=== PATIENT | male | born 1930 | race Caucasian/White ===

== ENCOUNTER → 2016-09-08 | Outpatient (CLI) | payer MEDICARE, OTHER ==
[~2016-09-08] MED LIST: ASCORBIC ACID500 MG PO; ASPIRIN LO-DOSE81 MG PO; FISH OIL1000 MG PO; FLOMAX0.4 MG PO; HYTRIN UD5 MG PO; LIPITOR40 MG PO; LOPRESSOR25 MG PO; NORCO 5-325 TA1 EACH PO; PEPCID20 MG PO; PHILLIPS MOM311 MG PO; PRAVACHOL20 MG PO; PRINIVIL (ZESTRI5 MG PO; PROTONIX40 MG PO; THERAGRAN-M1 TAB PO; TYLENOL WITH C1 EACH PO; VIACTIV SOFT C1 EACH PO
== END | disposition disaster alternative care site (69) ==
LOC: GRAD 08:54
DX: N63 Unspecified lump in breast (principal)

== ENCOUNTER → 2016-09-29 | Outpatient (CLI) | payer MEDICARE, OTHER | END | disposition disaster alternative care site (69) | LOC: GBCOE 12:52 | DX: N63 Unspecified lump in breast (principal) | CPT/HCPCS: G0206; G0279 ==

== ENCOUNTER 2017-01-17 02:21 | Emergency (ER) | payer MEDICARE, OTHER ==
--- NOTE | ~2017-01-17 | ER ---
PATIENT'S NAME: VERENA AGUIRRE [facility] AGE: 86 Y [address] ROOM: [place] [address] LOCATION: ED ADMIT DATE: 01/17/2017 ER/Outpatient Report DISCHARGE DATE: FAMILY PHYSICIAN: Raza Chan MD ATTENDING PHYSICIAN: Raza Davis Admission date and time documented in medical record. I saw the patient at 0235 hours. CHIEF COMPLAINT: Bloating, epigastric pain, and diaphoresis. HISTORY OF PRESENT ILLNESS: The patient is an 86-year-old male, who around 0100 hours got up to go to the restroom and noticed that he was diaphoretic. He felt his upper abdomen was bloating and he had some epigastric abdominal discomfort. He has been having some problems with this for quite some time. He is scheduled to get an ultrasound of his gallbladder this coming Thursday. No chest pain, just epigastric discomfort. No shortness of breath. Little bit of nausea, but no vomiting, diarrhea, urinary frequency, urgency, or dysuria. No fever or chills. No recent coughs, colds, or flus. No lightheadedness, dizziness, syncope, or near syncope. No fall or trauma. No headache or eyes, ears, nose, throat, neck, or spine pain. No joint or muscle swelling, redness, or pain. No skin eruptions or rash. No history of neuro changes, psych issues, endocrine problems. Does have a history of chronic kidney disease, reflux, coronary artery disease, carotid occlusive disease, and dyslipidemia. HOME MEDICATIONS: See attached medication list. ALLERGIES: CALCIUM CHANNEL BLOCKERS. SOCIAL HISTORY: Nonsmoker, nondrinker. SIGNIFICANT PAST MEDICAL HISTORY: Atherosclerotic ischemic heart disease with coronary artery disease, dyslipidemia, benign prostatic hypertrophy, hypertension, gastroesophageal reflux, colon cancer, chronic kidney disease stage 3, ventral hernia, carotid occlusive disease, hard of hearing. OPERATIONS: Cardiac catheterization with PTCA and stenting, cataract extraction, prostate biopsies, carotid artery surgery. PATIENT'S NAME: VERENA AGUIRRE [facility] AGE: 86 Y [address] ROOM: [place] [address] LOCATION: ED ADMIT DATE: 01/17/2017 ER/Outpatient Report DISCHARGE DATE: FAMILY PHYSICIAN: Raza Chan MD ATTENDING PHYSICIAN: Raza Davis REVIEW OF SYSTEMS: All systems reviewed by me are negative with the exception of those discussed in the history of present illness. PHYSICAL EXAMINATION: VITAL SIGNS: Pulse 84 and regular, respirations 16, blood pressure 191/79, O2 sat on room air is 94%. Lanny Coma Scale was 15. HEAD: Normocephalic. EYES: Extraocular muscles intact. PERRL. EARS: Clear TMs bilaterally. NOSE AND THROAT: Clear. Mucous membranes moist. NECK: No nuchal rigidity. No thyromegaly, or cervical adenopathy. No tenderness. SPINE: Nontender. No deformity. LUNGS: Clear. Good air flow. No rales, rhonchi, or wheezes. HEART: Regular. Pulses are palpable. No chest wall or ribcage pain to palpation. ABDOMEN: Soft. Some mild epigastric right upper quadrant abdominal discomfort to palpation. No true guarding or rigidity. No rebound tenderness. Active bowel tones. No organomegaly or abnormal masses palpable. No CVA tenderness. EXTREMITIES: Without peripheral edema, cyanosis, or deformity. NEURO: Neurovascularly intact. SKIN: Clear. No skin eruptions or rash. IMAGING DATA: Chest x-ray showed no perforation, obstruction, or acute lung infiltrate. We will review x-ray with the radiologist. EKG showed sinus rhythm with a right bundle-branch block, first-degree AV block. No acute ST elevation, ischemic change, or arrhythmia. LABORATORY DATA: Urinalysis was clear. White count was 7000, 70 segs, 16 lymphs, 9 monos, 4 eos, 1 baso. Hemoglobin is 11.4, hematocrit 34.4, platelet count is 200,000. Protime is 10.8 with an INR of 1.03. CMS was normal except for an elevated glucose of 103, elevated BUN of 34, elevated creatinine 1.8 with a low GFR of 36. Amylase was 130, lipase was 343, CPK was 214, CK-MB was 3.8. Troponin was less than 0.04. TSH was elevated at 6.0. Did get a CT scan of the abdomen and pelvis without contrast. Did show cholelithiasis without cholecystitis. He had some sigmoid diverticulosis without diverticulitis. Appendix was normal. He had some mild renal atrophy with chronic degenerative changes of the spine. CT scan was read by Radiology, see dictated transcribed report. EMERGENCY DEPARTMENT COURSE: PATIENT'S NAME: VERENA AGUIRRE [facility] AGE: 86 Y [address] ROOM: [place], [place] [address] LOCATION: [facility] ADMIT DATE: 01/17/2017 ER/Outpatient Report DISCHARGE DATE: FAMILY PHYSICIAN: Raza Chan MD ATTENDING PHYSICIAN: Raza Davis I did give the patient an oral GI cocktail with some improvement. IMPRESSION: 1. Epigastric right upper quadrant abdominal pain with bloating, etiology uncertain, but most likely secondary to cholelithiasis. 2. Sigmoid diverticulosis without diverticulitis. 3. Chronic kidney disease stage 3. 4. Atherosclerotic ischemic heart disease with coronary artery disease. 5. Carotid occlusive disease. 6. Dyslipidemia. 7. Hypertension. 8. Gastroesophageal reflux. 9. Carotid occlusive disease. PLAN: The patient dismissed home. Observation. Activity as tolerated. Continue present home medications and care. Avoid diet and fluids as tolerated. Avoid spicy, greasy, fatty, fried foods. The patient was encouraged to follow up and do his ultrasound of the gallbladder that scheduled on this coming Thursday. Follow up with personal physician as needed or as scheduled. Discussion ensued with the patient his concerning my findings and recommendations, they understand. MD ANDI BURNS/modl /[id number] d: 01/17/17 06 t: 01/17/17 1809, OUTPATIENT REPORT
[~2017-01-17 02:21] MED LIST changes: -NORCO 5-325 TA1 EACH PO; -TYLENOL WITH C1 EACH PO
[2017-01-17 03:04] LABS: BASOPHIL # 0.1 K/uL (0.0-0.2); BASOPHIL % 0.7 %; EOSINOPHIL # 0.3 K/uL (0.0-0.5); EOSINOPHIL % 3.7 %; HEMATOCRIT 34.4 % (33.0-50.0); HEMOGLOBIN 11.4 g/dL (11.0-16.0); IMMATURE GRANULOCYTE # 0.1 K/uL (0.0-0.3); IMMATURE GRANULOCYTE % 1.1 %; LYMPHOCYTE # 1.1 K/uL (0.8-4.0); LYMPHOCYTE % 15.5 %; MCH 33.1 pg (27.0-34.0); MCHC 33.1 gm/dL (32.0-36.5); MONOCYTE # 0.6 K/uL (0.0-1.0); MONOCYTE % 8.6 %; MPV 9.7 fl (9.4-12.4); NEUTROPHIL # (ANC) 4.9 K/uL (1.4-9.0); NEUTROPHIL % 70.4 %; NRBC % 0 /100WBC (0-0.00); PLATELET COUNT 200 K/uL (150-450); RBC 3.44 M/uL (3.50-5.50); RDW-CV 12.6 % (11.9-14.6)
[2017-01-17 03:13] LABS: INR - (THERAPEUTIC) 1.03 (0.92-1.07); PROTIME 10.8 SECONDS (9.8-11.4)
[2017-01-17 03:24] LABS: ALBUMIN 3.7 gm/dL (3.5-5.0); ALK PHOS 92 IU/L (33-138); ALT 23 IU/L (12-78); ANION GAP 12.1 (10.0-19.0); AST 28 IU/L (10-40); BLOOD UREA NITROGEN 34 mg/dL (6-24); CALCIUM 9.8 mg/dL (8.5-10.5); CHLORIDE 110 mMol/L (96-110); CO2 27 mMol/L (22-32); CPK 214 IU/L (35-332); CREATININE 1.8 mg/dL (0.6-1.3); ESTIMATED GFR (MDRD EQUATION) 36; POTASSIUM 4.1 mMol/L (3.7-5.1); SODIUM 145 mMol/L (135-145); TOTAL BILIRUBIN 0.7 mg/dL (0.0-1.5); TOTAL PROTEIN 6.7 g/dL (6.0-8.4)
[2017-01-17 04:29] LABS: BILIRUBIN URINE NEGATIVE (NEGATIVE); BLOOD URINE NEGATIVE /UL (NEGATIVE); COLOR URINE YELLOW (YELLOW); GLUCOSE URINE NEGATIVE (NEGATIVE); KETONE URINE NEGATIVE (NEGATIVE); LEUKOCYTES URINE NEGATIVE /UL (NEGATIVE); NITRITE URINE NEGATIVE (NEGATIVE); PROTEIN URINE NEGATIVE (NEGATIVE); TURBIDITY URINE CLEAR (CLEAR); UROBILINOGEN URINE NORMAL (NORMAL)
[2017-01-27] MEDS ORDERED: TYLENOL WITH C1 EACH PO (09:26)
[2017-01-28] MEDS ORDERED: NORCO 5-325 TA1 EACH PO (09:31)
== END 2017-01-17 05:11 | disposition disaster alternative care site (69) ==
LOC: GMED 02:21
PROVIDERS: Emergency Medicine
DX: K57.30 Diverticulosis of large intestine without perforation or abscess without bleeding (principal); K21.9 Gastro-esophageal reflux disease without esophagitis; I12.9 Hypertensive chronic kidney disease with stage 1 through stage 4 chronic kidney disease, or unspecified chronic kidney disease; N18.3 Chronic kidney disease, stage 3 (moderate); I25.10 Atherosclerotic heart disease of native coronary artery without angina pectoris; I65.29 Occlusion and stenosis of unspecified carotid artery; E78.5 Hyperlipidemia, unspecified; N40.0 Benign prostatic hyperplasia without lower urinary tract symptoms; K43.9 Ventral hernia without obstruction or gangrene; Z98.890 Other specified postprocedural states; Z98.61 Coronary angioplasty status; Z88.8 Allergy status to other drugs, medicaments and biological substances; Z79.899 Other long term (current) drug therapy

== ENCOUNTER → 2017-01-20 | Outpatient (CLI) | payer MEDICARE, OTHER ==
[~2017-01-20] MED LIST changes: +NORCO 5-325 TA1 EACH PO; +TYLENOL WITH C1 EACH PO
== END | disposition disaster alternative care site (69) ==
LOC: GRAD 09:16
DX: R10.13 Epigastric pain (principal); K80.50 Calculus of bile duct without cholangitis or cholecystitis without obstruction; Q61.02 Congenital multiple renal cysts

== ENCOUNTER 2017-01-23 07:08 | Emergency (ER) | payer MEDICARE, OTHER ==
--- NOTE | ~2017-01-23 | ER ---
PATIENT'S NAME: VERENA AGUIRRE [facility] AGE: 86 Y [address] ROOM: [place] [address] LOCATION: [facility] ADMIT DATE: 01/23/2017 ER/Outpatient Report DISCHARGE DATE: 01/23/2017 FAMILY PHYSICIAN: Raza Chan MD ATTENDING PHYSICIAN: Raza Davis Admission date and time documented in the medical record. I saw the patient at 0725 hours. CHIEF COMPLAINT: Right upper quadrant abdominal pain. HISTORY OF PRESENT ILLNESS: The patient is an 86-year-old male who comes in with right upper quadrant abdominal pain. This started about 0100 hours this morning. Over the past week or so, he has been having pain about this time every night. He has been evaluated several times in the clinic and once here in the emergency department. I saw him on January 17. CT scan at that time showed cholelithiasis without cholecystitis which was most likely the cause of his pain. He had an ultrasound of the gallbladder recently per his personal physician that also showed cholelithiasis without cholecystitis. He has no other intraabdominal problems, so we are assuming that the pain is due to his cholelithiasis. He has not had any recent colds, coughs, flus, fever, chills, or sweats. He is having no nausea, vomiting, or diarrhea. No chest pain or shortness of breath. He has not fallen. He has no lightheadedness or dizziness. No urinary symptomatology. No skin eruptions or rash. No neurologic changes or endocrine problems. Lot of anxiety because of his current situation. HOME MEDICATIONS: See attached medication list. ALLERGIES: CALCIUM-CHANNEL BLOCKERS. SOCIAL HISTORY: Nonsmoker and nondrinker. SIGNIFICANT PAST MEDICAL HISTORY: Atherosclerotic ischemic heart disease with coronary artery disease; dyslipidemia; benign prostatic hypertrophy; hypertension; gastroesophageal reflux; colon cancer; chronic kidney disease, stage 3; ventral hernia; carotid occlusive disease; and hard of hearing. OPERATIONS: PATIENT'S NAME: VERENA AGUIRRE [facility] AGE: 86 Y [address] ROOM: [place] [address] LOCATION: [facility] ADMIT DATE: 01/23/2017 ER/Outpatient Report DISCHARGE DATE: 01/23/2017 FAMILY PHYSICIAN: Raza Chan MD ATTENDING PHYSICIAN: Raza Davis Cardiac catheterization with PTCA and stenting, cataract extraction, prostate biopsies, and carotid artery surgery. REVIEW OF SYSTEMS: All systems reviewed by me are negative with the exception of those discussed in the History of Present Illness. PHYSICAL EXAMINATION: VITAL SIGNS: Temperature 98 tympanic, pulse 78, respirations 20, blood pressure 190/84, and O2 saturation on room air is 94%. HEAD: Normocephalic. EYES, EARS, NOSE, AND THROAT: Clear. Mucous membranes moist. NECK AND SPINE: Negative. LUNGS: Clear. Good air flow. No rales, rhonchi, or wheezes. HEART: Regular. Pulses palpable. CHEST: No chest wall or ribcage pain to palpation. ABDOMEN: Soft and nondistended. Tender in the right upper quadrant to deep palpation. No true guarding or rigidity. No rebound tenderness. Active bowel tones. No organomegaly or abnormal masses palpable. No CVA tenderness. EXTREMITIES: Without peripheral edema, cyanosis, or deformity. NEUROVASCULAR: Intact. SKIN: Clear. LABORATORY DATA: CMS was normal except for an elevated glucose of 104, elevated BUN of 30, elevated creatinine of 1.6, and low GFR of 38. Amylase was 110 and lipase was 304. White count 7300 with 73 segs, 14 lymphs, 9 monos, 3 eos, and 1 baso; hemoglobin was 11.8; hematocrit 35.2; and platelet count was 213,000. IMPRESSION: 1. Right upper quadrant abdominal pain secondary to cholelithiasis. No evidence of cholecystitis on recent ultrasound and CT scan. His white count has been normal. He has not been feverish. He has discomfort in the right upper quadrant, but no guarding, rigidity, surgical abdomen. 2. Hypertension. 3. Chronic kidney disease, stage 3. 4. Atherosclerotic ischemic heart disease with coronary artery disease. 5. Dyslipidemia. 6. Gastroesophageal reflux. 7. History of carotid occlusive disease. PLAN: I tried to get hold of the patient's personal physician who was out today. I did talk with Dr. Martini, general surgeon on-call. He wanted to see the patient on Thursday, and then he would contact the patient's personal physician PATIENT'S NAME: VERENA AGUIRRE [facility] AGE: 86 Y [address] ROOM: [place], [place] [address] LOCATION: [facility] ADMIT DATE: 01/23/2017 ER/Outpatient Report DISCHARGE DATE: 01/23/2017 FAMILY PHYSICIAN: Raza Chan MD ATTENDING PHYSICIAN: Raza Davis and see if there are any contraindications to him having surgery. I did discuss this with the patient and his , and they understand and agree with the treatment plan. The patient is dismissed home. Observation. Fluids and diet as tolerated. Continue home medications and care. Tylenol with Codeine 1 to 2 every 4 to 6 hours as needed for pain, #20. Follow up with personal physician as needed. See Dr. Martini, surgeon, on Thursday. They are to call for an appointment today. MD ANDI BURNS/modl /[id number] d: 01/23/17 1622 t: 01/24/17 0613, OUTPATIENT REPORT
[~2017-01-23 07:08] MED LIST changes: -NORCO 5-325 TA1 EACH PO; -TYLENOL WITH C1 EACH PO
[2017-01-23 08:03] LABS: BASOPHIL % 0.6 %; EOSINOPHIL # 0.2 K/uL (0.0-0.5); EOSINOPHIL % 2.5 %; HEMATOCRIT 35.2 % (33.0-50.0); HEMOGLOBIN 11.8 g/dL (11.0-16.0); IMMATURE GRANULOCYTE # 0.1 K/uL (0.0-0.3); IMMATURE GRANULOCYTE % 1.1 %; LYMPHOCYTE % 14.2 %; MCH 33.2 pg (27.0-34.0); MCHC 33.5 gm/dL (32.0-36.5); MCV 99.2 fl (83.0-98.0); MONOCYTE # 0.6 K/uL (0.0-1.0); MONOCYTE % 8.5 %; MPV 9.9 fl (9.4-12.4); NEUTROPHIL # (ANC) 5.3 K/uL (1.4-9.0); NEUTROPHIL % 73.1 %; NRBC % 0 /100WBC (0-0.00); PLATELET COUNT 213 K/uL (150-450); RBC 3.55 M/uL (3.50-5.50); RDW-CV 12.3 % (11.9-14.6); WBC 7.3 K/uL (4.0-11.0)
[2017-01-23 08:22] LABS: ALBUMIN 3.7 gm/dL (3.5-5.0); ANION GAP 14.1 (10.0-19.0); CREATININE 1.6 mg/dL (0.6-1.3); POTASSIUM 4.1 mMol/L (3.7-5.1); TOTAL PROTEIN 6.7 g/dL (6.0-8.4)
[2017-01-23 08:25] LABS: TOTAL BILIRUBIN 0.9 mg/dL (0.0-1.5)
[2017-01-27] MEDS ORDERED: TYLENOL WITH C1 EACH PO (09:26)
[2017-01-28] MEDS ORDERED: NORCO 5-325 TA1 EACH PO (09:31)
== END 2017-01-23 09:54 | disposition disaster alternative care site (69) ==
LOC: GMED 07:08
PROVIDERS: Emergency Medicine
DX: K80.20 Calculus of gallbladder without cholecystitis without obstruction (principal); I25.10 Atherosclerotic heart disease of native coronary artery without angina pectoris; I12.9 Hypertensive chronic kidney disease with stage 1 through stage 4 chronic kidney disease, or unspecified chronic kidney disease; N18.3 Chronic kidney disease, stage 3 (moderate); K21.9 Gastro-esophageal reflux disease without esophagitis; E78.5 Hyperlipidemia, unspecified; C18.9 Malignant neoplasm of colon, unspecified; N40.0 Benign prostatic hyperplasia without lower urinary tract symptoms; Z95.5 Presence of coronary angioplasty implant and graft; Z88.8 Allergy status to other drugs, medicaments and biological substances

== ENCOUNTER → 2017-01-28 | Outpatient (CLI) | payer MEDICARE, OTHER ==
[~2017-01-28] MED LIST changes: +NORCO 5-325 TA1 EACH PO; +TYLENOL WITH C1 EACH PO
--- NOTE | ~2017-01-28 | HP ---
PATIENT'S NAME: VERENA AGUIRRE [facility] AGE: 86 Y [address] ROOM: [place] [address] LOCATION: IS ADMIT DATE: 01/28/2017 History & Physical DISCHARGE DATE: FAMILY PHYSICIAN: Raza Chan MD ATTENDING PHYSICIAN: Jess Nance DATE OF SERVICE: HISTORY OF PRESENT ILLNESS: An 86-year-old white male who had a cholecystectomy by Dr. Martini on the morning of January 28. He was dismissed from the outpatient department even though he had not voided. He has a past history of having urinary retention after any surgical procedure. He has been followed in the office for a number of years. His prostate is enlarged, and he has been on Hytrin 5 mg every night for his BPH. After he was dismissed home, he has been unable to void and has developed suprapubic fullness, pressure, and discomfort. He is seen now for insertion of a Clay catheter. PHYSICAL EXAMINATION: GENERAL: A well-developed, well-nourished, alert male. ABDOMEN: Soft and nondistended. There is fullness and tenderness in the suprapubic area. GENITOURINARY: Normal penis. Testicles are normal. Prostate is enlarged and benign. IMPRESSION: 1. Benign prostatic hypertrophy. 2. Urinary retention postop cholecystectomy. RECOMMENDATIONS: A #18 Clay catheter was inserted, and he was sent home with a Clay catheter. He is to remove the catheter early on the morning of February 02 and return to the office at noon. JESS NACNE MD EKL/modl PATIENT'S NAME: VERENA AGUIRRE [facility] AGE: 86 Y [address] ROOM: [place] [address] LOCATION: [facility] ADMIT DATE: 01/28/2017 History & Physical DISCHARGE DATE: FAMILY PHYSICIAN: Raza Chan MD ATTENDING PHYSICIAN: Jess Nance /[id number] D: [id number] T: [id number] HISTORY & PHYSICAL
== END | disposition disaster alternative care site (69) ==
LOC: GMIS 13:50
DX: Z46.6 Encounter for fitting and adjustment of urinary device (principal)

== ENCOUNTER → 2017-01-28 | Day surgery (SDC) | payer MEDICARE, OTHER ==
[~2017-01-28] VITALS: Ht 160 cm; Wt 65.6 kg
--- NOTE | ~2017-01-28 | OR ---
PATIENT'S NAME: VERENA AGUIRRE [facility] AGE: 86 Y [address] ROOM: [place] [address] LOCATION: [facility] ADMIT DATE: 01/28/2017 OR/Procedure Report DISCHARGE DATE: FAMILY PHYSICIAN: Raza Chan MD ATTENDING PHYSICIAN: Florin Fields SURGEON: Florin Fields MD POWER BALLAST MACHINE OPERATOR: Tyesha Madera PA-C. DATE OF PROCEDURE: 01/28/2017 PREOPERATIVE DIAGNOSES: 1. History of chronic cholecystitis, cholelithiasis, biliary colic. 2. History of slight elevation of amylase in history. POSTOPERATIVE DIAGNOSES: 1. Chronic cholecystitis, cholelithiasis. 2. No evidence of common bile duct stones. PROCEDURE PERFORMED: Laparoscopic cholecystectomy with intraoperative cholangiogram. ANESTHESIA: General with 25 mL of 1% Xylocaine. SPECIMENS: Gallbladder. CHOLANGIOGRAM FINDINGS: Cannulation of cystic duct and infundibulum was performed with identification of common bile duct, hepatic bifurcation as well as free flow of contrast into the duodenum. There was no evidence of filling defects. Common bile duct small size. DESCRIPTION OF PROCEDURE: After informed consent, the patient was taken to the operating room and after general endotracheal anesthesia, the patient's abdomen was prepped and draped into a sterile field. A time-out performed. We confirmed the patient, planned procedure, and administration of preop antibiotics. Local anesthetic was infiltrated prior to each incision. The first one made below the umbilicus, carried down to identify the anterior fascia through which a Veress needle inserted. Pneumoperitoneum created. Trocar and laparoscope inserted. Safe entry was noted under direct vision. The remaining trocars were placed. There were adhesions in the left upper quadrant and adhesions of the omentum and the transverse colon mesentery to the free edge of the right hepatic lobe. We were able to identify the fundus of the gallbladder, retracted it superiorly. We then carefully stripped down the adhesions to the free wall of the gallbladder. We identified the infundibulum. We took down the lateral reflection of the gallbladder onto the liver bed in order to increase our critical view of safety by opening up the triangle. We then took down the fatty tissue of the triangle and could trace PATIENT'S NAME: VERENA AGUIRRE [facility] AGE: 86 Y [address] ROOM: [place], [place] [address] LOCATION: [facility] ADMIT DATE: 01/28/2017 OR/Procedure Report DISCHARGE DATE: FAMILY PHYSICIAN: Raza Chan MD ATTENDING PHYSICIAN: Florin Fields the cystic duct from the infundibulum, and we were able to get 360 degree control. We also isolated out, next to the medial gallbladder wall, the cystic artery and placed 2 clips without division. Next, we made a cystotomy of the cystic duct and inserted a cholangiogram catheter. We used 24 mL of Isovue-30 contrast. There was some extravasation. We identified the small caliber cystic duct leading into the common bile duct and free flow contrast into the duodenum without filling defects. We then removed the catheter, clipped the cystic duct x3 distally and divided with 1 clip remaining in the specimen side. Cystic artery was divided. There were no other structures. The gallbladder removed from the liver bed with electrocautery, placed into an EndoCatch sac and brought out through the umbilical incision. We irrigated the right upper quadrant, inspected the gallbladder fossa. No evidence of bile or blood. The trocars were removed. The attenuated weakened fascia was closed with 0 Vicryl in the midline and the skin incision was closed with subcuticular 4-0 Vicryl. Steri-Strips sterile dressings applied. The patient tolerated the procedure well, transferred to the recovery room in stable condition. FLORIN FIELDS MD WTS/modl /[id number] d: 01/28/17 1659 t: 02/06/17 0911, OPERATIVE SUMMARY
== END | disposition disaster alternative care site (69) ==
LOC: GPOC 01-27 09:00 → GSDC 05:55
PROC: 0FT44ZZ Resection of Gallbladder, Percutaneous Endoscopic Approach (ICD-10-PCS; principal; 2017-01-28)
PROC: BF121ZZ Fluoroscopy of Gallbladder using Low Osmolar Contrast (ICD-10-PCS; 2017-01-28)
DX: K80.10 Calculus of gallbladder with chronic cholecystitis without obstruction (principal); I11.9 Hypertensive heart disease without heart failure; E78.00 Pure hypercholesterolemia, unspecified; N40.0 Benign prostatic hyperplasia without lower urinary tract symptoms; Z95.5 Presence of coronary angioplasty implant and graft; Z98.890 Other specified postprocedural states; Z79.82 Long term (current) use of aspirin; Z79.899 Other long term (current) drug therapy
CPT/HCPCS: J0694; J2001; J7030